=== PATIENT | female | born 1990 | race Caucasian/White ===

== ENCOUNTER 2024-12-26 13:39 | Emergency (ER) | payer SELFPAY ==
[~2024-12-26] VITALS: Ht 149.9 cm; Wt 46.3 kg
[2024-12-26] MEDS ORDERED: CLONAZEPAM1 MG PO (13:57)
[2024-12-26] MEDS ORDERED: KEPPRA1000 M1 (13:57)
[2024-12-26] MEDS: KETOROLAC TROMETHAMINE 60 MG/2 ML VIAL IM ONE (14:18)
[2024-12-26 15:24] VITALS: PULSE 60; RESP 16; TEMP 98.9; O2SAT 99
== END 2024-12-26 15:29 | disposition home or self-care (01) ==
LOC: FSED 13:45
DX: S82.844A Nondisplaced bimalleolar fracture of right lower leg, initial encounter for closed fracture (principal); X50.1XXA Overexertion from prolonged static or awkward postures, initial encounter; Y93.01 Activity, walking, marching and hiking; Y92.89 Other specified places as the place of occurrence of the external cause; G40.909 Epilepsy, unspecified, not intractable, without status epilepticus; F41.9 Anxiety disorder, unspecified; F17.210 Nicotine dependence, cigarettes, uncomplicated
CPT/HCPCS: 29515; 73610; 73630; 96372; 99284; J1885